=== PATIENT | female | born 1990 | race Caucasian/White ===

== ENCOUNTER → 2024-10-13 | Outpatient (CLI) | payer MEDICAID, SELFPAY ==
[2024-10-13 14:58] LABS: Absolute Neutrophil Count 2.9 X10^3/uL (2.0-7.7); Basophil# 0.06 X10^3/uL; Basophil% 1.2 % (0-1); Eosinophil# 0.11 X10^3/uL; Eosinophils% 2.3 % (0-5); Hematocrit 35.3 % (37-47); Hemoglobin 11.4 g/dL (12.0-15.0); Lymphocyte % 26.6 % (19-41); Mean Corp Hgb Conc 32.3 g/dL (32-36); Mean Corpuscular Hgb 28.1 pg (27.0-32.0); Mean Corpuscular Volume 87.2 fL (81-99); Mean Platelet Vol. 13.9 fl (6.2-12.0); Monocyte% 10.2 % (0-10); NRBC Flagged by Analyzer 0 % (0-5); Neutrophil % 59.5 % (47-70); Platelet Count 171 K/mm3 (150-450); RBC Distribution Width CV 12.5 % (11.6-14.6); RBC Distribution Width SD 39.9 fl (35.1-43.9); Red Blood Count 4.05 M/mm3 (4.2-5.4); White Blood Count 4.9 K/mm3 (4.4-11.0)
[2024-10-13 15:23] LABS: ALB/GLOB Ratio 1.3 RATIO (0.9-2.4); AST(SGOT) 14 U/L (15-37); Alanine Aminotransfer ALT/SGPT 18 U/L (13-56); Alkaline Phosphatase 62 U/L (45-117); Anion Gap 3 (5-15); BUN 11 mg/dL (7-18); BUN/Creat Ratio 15.1 RATIO (10-20); Calcium,Total 8.8 mg/dL (8.5-10.1); Chloride 108 mmol/L (98-107); Creatinine, Serum 0.73 mg/dL (0.55-1.02); EST Glomerular Filtration Rate 97 mL/min (>60); Est Glom Filt Rate - Afr Amer 117 mL/min (>60); Glucose 81 mg/dL (74-106); Potassium 4.3 mmol/L (3.5-5.1); Sodium Level 138 mmol/L (136-145)
== END | disposition home or self-care (01) ==
LOC: LABSPEC 14:43
PROVIDERS: Visit Provider Nurse Practitioner Family
DX: A69.22 Other neurologic disorders in Lyme disease (principal); A44.0 Systemic bartonellosis; R53.82 Chronic fatigue, unspecified; R51.9 Headache, unspecified; G90.A Postural orthostatic tachycardia syndrome [POTS]; H93.233 Hyperacusis, bilateral; B60.0 Babesiosis
CPT/HCPCS: 80053; 85025

== ENCOUNTER → 2024-10-25 | Outpatient (CLI) | payer MEDICAID, SELFPAY ==
[2024-10-25 13:04] LABS: Vitamin B12 649 pg/mL (211-911)
[2024-10-25 13:38] LABS: Ferritin 12 ng/mL (8-252); Iron 100 ug/dL (50-170)
== END | disposition home or self-care (01) ==
LOC: LABSPEC 12:19
PROVIDERS: Referring Provider Nurse Practitioner Family; Visit Provider Nurse Practitioner Family
DX: D64.9 Anemia, unspecified (principal)
CPT/HCPCS: 82607; 82728; 82746; 83540

== ENCOUNTER → 2024-10-29 | Outpatient (CLI) | payer MEDICAID, SELFPAY ==
--- NOTE | 2024-10-29 14:38 | BI_ITS ---
MAMMOGRAPHY - BILATERAL DIAGNOSTIC REASON FOR EXAM: Female, 34 years old. Left lateral breast tenderness and swelling. PERTINENT HISTORY: Non-contributory. TECHNIQUE: Digital bilateral breast aranza (3D mammographic acquisition) in the CC and MLO projections. 2-D mediolateral oblique (MLO) and craniocaudad (CC) views of both breasts were obtained. CAD: Full Field Digital Mammography with Computer Added Detection was performed. COMPARISON: None. Baseline examination. FINDINGS: Breast Composition: The breasts are extremely dense, which lowers the sensitivity of mammography. There are no dominant masses or suspicious calcifications. No other significant abnormalities are identified. BI/DIAG MAMM W/CAD, BILAT IMPRESSION: Negative diagnostic mammogram. With the patient''s history of a left lateral breast tenderness, correlation with ultrasound recommended. ASSESSMENT CATEGORY: BIRADS Category 0: Incomplete. Need additional imaging evaluation. A letter regarding these results will be sent to the patient by the facility within 30 days. Approximately 10% of breast cancers are not detected by mammography. A normal mammogram should not delay biopsy of a clinically suspicious abnormality. Electronically Signed: Asher Morales MD at 8:50 EST ,
--- NOTE | 2024-10-29 14:38 | US_ITS ---
STUDY: ULTRASOUND BREAST - LEFT REASON FOR EXAM: Female, 34 years old. Enlarged left axillary lymph nodes. TECHNIQUE: Axial and longitudinal images of the LEFT breast were performed with a high resolution ultrasound transducer. # OF IMAGES: 79 COMPARISON: Comparison is made with prior mammogram done earlier in the day. FINDINGS: LEFT Breast: The lateral half of the left breast was examined with ultrasound. Scattered subcentimeter cysts are seen. The largest measures 5 mm x 6 mm x 3 mm. This is at the 1:00 position of the breast at 6 and from nipple. Subcentimeter benign-appearing lymph nodes are seen in the left axilla. US/Breast Limited Unilateral IMPRESSION: Small benign-appearing left axillary lymph nodes. Scattered subcentimeter cysts as described. ASSESSMENT CATEGORY: BIRADS Category 2: Benign. A letter regarding these results will be sent to the patient by the facility within 30 days. Electronically Signed: Asher Morales MD at 15:02 EST ,
== END | disposition home or self-care (01) ==
PROVIDERS: Referring Provider Nurse Practitioner Family; Visit Provider Nurse Practitioner Family
DX: R59.0 Localized enlarged lymph nodes (principal); N64.4 Mastodynia
CPT/HCPCS: 77062; 76642; 77066; G0279

== ENCOUNTER → 2024-11-30 | Outpatient (CLI) | payer MEDICAID, SELFPAY ==
[2024-12-02 06:38] LABS: PROGESTERONE 1.6 ng/mL (.)
== END | disposition home or self-care (01) ==
PROVIDERS: Referring Provider Nurse Practitioner Family; Visit Provider Nurse Practitioner Family
DX: A69.22 Other neurologic disorders in Lyme disease (principal); B60.0 Babesiosis; A44.0 Systemic bartonellosis; R53.82 Chronic fatigue, unspecified; R51.9 Headache, unspecified; G90.A Postural orthostatic tachycardia syndrome [POTS]; H93.233 Hyperacusis, bilateral; R23.2 Flushing; N64.59 Other signs and symptoms in breast
CPT/HCPCS: 36415; 82627; 82670; 84144; 84207; 84403; 84425; 86658; 82626

== ENCOUNTER → 2024-12-15 | Outpatient (CLI) | payer MEDICAID, SELFPAY | END | disposition home or self-care (01) | LOC: LAB 10:18 → LABSPEC 10:18 → LAB 11:27 | PROVIDERS: Referring Provider Nurse Practitioner Family; Visit Provider Nurse Practitioner Family | DX: A69.20 Lyme disease, unspecified (principal); A69.22 Other neurologic disorders in Lyme disease; B60.0 Babesiosis; A44.0 Systemic bartonellosis; R53.82 Chronic fatigue, unspecified; F51.9 Sleep disorder not due to a substance or known physiological condition, unspecified; G90.A Postural orthostatic tachycardia syndrome [POTS]; H93.233 Hyperacusis, bilateral; N64.59 Other signs and symptoms in breast; R23.2 Flushing; F32.A Depression, unspecified | CPT/HCPCS: 36415; 81050; 81291 ==